=== PATIENT | female | born 1955 | race Caucasian/White ===

== ENCOUNTER → 2017-11-11 | Day surgery (SDC) | payer BC ==
[~2017-11-11] VITALS: Ht 157.4 cm; Wt 72.6 kg
[~2017-11-11] MED LIST: ATIVAN1 MG PO; NORVASC10 MG PO; PRAVACHOL40 MG PO; Synthroid,Levo50 MCG PO; TRICOR48 MG PO
[2017-11-11 07:31] VITALS: BP 121/76
[2017-11-11 08:48] VITALS: BP 107/65
[2017-11-11 09:03] VITALS: BP 119/74
[2017-11-11 09:18] VITALS: BP 129/79
[2017-11-11 09:33] VITALS: BP 127/72
[2017-11-11 09:42] VITALS: BP 122/68
== END | disposition home or self-care (01) ==
LOC: SDC 11-07 12:30
DX: Z12.11 Encounter for screening for malignant neoplasm of colon (principal); K64.8 Other hemorrhoids; K29.50 Unspecified chronic gastritis without bleeding; K21.9 Gastro-esophageal reflux disease without esophagitis; I10 Essential (primary) hypertension; E03.9 Hypothyroidism, unspecified; F41.9 Anxiety disorder, unspecified; Z86.010 Personal history of colon polyps; Z87.891 Personal history of nicotine dependence; Z79.899 Other long term (current) drug therapy